=== PATIENT | female | born 1950 | race Caucasian/White ===

== ENCOUNTER 2021-06-01 10:05 | Inpatient (IN) ==
[2021-06-01] MEDS ORDERED: ACETAMINOPHEN 500 MG TABLET ONE (11:05)
[2021-06-01 11:06] LABS: Basophils % 0.2 % (0.0-0.8); Eosinophils % 0.2 % (0.00-10.9); Hematocrit 31.8 VOL% (35.7-47.0); Hemoglobin 10.2 GM/DL (12.0-16.0); Immature Granulocytes % 0.8 %; Immature Granulocytes Absolute 0.11 #; Lymphocytes # 1.4 10*3/uL (1.4-4.0); Lymphocytes % 10.4 % (21.3-54.2); Mean Corpuscular HGB Conc 32.1 GM/DL (32-36); Mean Corpuscular Volume 83.2 FL (87-102); Mean Platelet Volume 9.3 FL (9.6-12.0); Monocytes % 7.8 % (1.7-12.7); Neutrophils % 80.6 % (38.7-73.9); Platelet Count 572 T/CUMM (130-400); Red Blood Count 3.82 MC/CUMM (3.8-5.5); Red Cell Distribution Width 22.5 % (9.3-17.3); White Blood Count 13.1 T/CUMM (4-12)
[2021-06-01] MEDS ORDERED: ACETAMINOPHEN 500 MG TABLET PO STA (11:13)
[2021-06-01] MEDS ORDERED: AZITHROMYCIN 250 MG TABLET PO STA (11:16)
[2021-06-01] MEDS ORDERED: cefTRIAXone 1,000 MG in SODIUM CHLORIDE 0.9% 100 ML IV STA (11:16)
[2021-06-01 11:23] LABS: Blood Urea Nitrogen 13 MG/DL (7-18); Calcium 6.3 MG/DL (8.5-10.1); Carbon Dioxide 23 MMOL/L (21-32); Estimated Glom Filtration Rate 57 ML/MIN; Glucose 105 MG/DL (74-106); Hypochromasia Slight; Microcytosis Slight; Osmolality,Calculated 261.7 MOS/KG (273-304); Platelet Estimate Increased; Potassium 2.6 MMOL/L (3.5-5.1); Sodium 131 MMOL/L (136-145)
[2021-06-01 11:36] LABS: Barbiturates Screen,Urine Negative (Negative); Benzodiazepines Screen,Urine Positive (Negative); Cannabinoid Screen,Urine Negative (Negative); Opiate Screen,Urine Positive (Negative); Phencyclidine Screen,Urine Negative (Negative)
[2021-06-01] MEDS ORDERED: POTASSIUM CHLORIDE 20 MEQ TABLET PO STA (11:48)
[2021-06-01] MEDS ORDERED: CALCIUM GLUCONATE 1,000 MG in SODIUM CHLORIDE 0.9% 100 ML IV ONE (12:02)
[2021-06-01] MEDS ORDERED: ONDANSETRON 4 MG/2 ML VIAL IV PRN (12:19)
[2021-06-01] MEDS ORDERED: DOCUSATE SODIUM 100 MG CAPSULE PO PRN (12:19)
[2021-06-01] MEDS ORDERED: DEXTROSE 50% 25 GM/50 ML VIAL IV PRN (12:19)
[2021-06-01] MEDS ORDERED: SIMETHICONE CHEW 125 MG TABLET PO PRN (12:19)
[2021-06-01] MEDS ORDERED: ALUMINUM/MAGNES/SIMETH MAX STR 30 ML UDCUP PO PRN (12:19)
[2021-06-01] MEDS ORDERED: GLUCAGON 1 MG VIAL IM PRN (12:19)
[2021-06-01] MEDS ORDERED: ALBUTEROL 2.5 MG/3 ML NEB RESP TX PRN (12:19)
[2021-06-01] MEDS ORDERED: POTASSIUM CHLORIDE RIDER 10 MEQ/100 ML PREMIX IV PRN (12:33)
[2021-06-01] MEDS ORDERED: MAGNESIUM SULF RIDER 2 GM/50 ML PREMIX IV PRN (12:33)
[2021-06-01] MEDS ORDERED: POTASSIUM CHLORIDE 20 MEQ TABLET PO PRN (12:33)
[2021-06-01] MEDS ORDERED: MAGNESIUM SULF RIDER 4 GM/100 ML PREMIX IV PRN (12:33)
[2021-06-01] MEDS: LORazepam 2 MG/1 ML VIAL IV PRN ×2 (12:55→20:42)
[2021-06-01] MEDS ORDERED: hydrALAZINE 20 MG/1 ML VIAL IV PRN (13:05)
[2021-06-01] MEDS: ENOXAPARIN 40 MG/0.4 ML SYRINGE SUBCUT SCH (13:05)
[2021-06-01] MEDS: MAGNESIUM SULF RIDER 4 GM/100 ML PREMIX IV ONE ×2 (14:18→14:33)
[2021-06-01] MEDS: SODIUM CHLOR 0.9% KCL 40 MEQ 40 MEQ/1,000 ML BAG IV SCH (15:59)
[2021-06-01 18:34] LABS: Bilirubin,Urine Negative (Negative); Blood, Urine Negative (Negative); Glucose,Urine (UA) Negative (Negative); Ketones,Urine Negative (Negative); Nitrite,Urine Negative (Negative); Protein,Urine Negative; RBC,Urine 3 /HPF (0-4); Squamous Epithelial Cell,Urine Occasional /HPF (0-10); Urine Appearance CLEAR (Clear); Urine Color Straw (Yellow); Urine Specific Gravity 1.003 (1.001-1.035); Urine Urobilinogen < 2.0 EU/DL (0.2-1.0)
[2021-06-02 04:39] LABS: Basophils % 0.5 % (0.0-0.8); Eosinophils # 0.1 10*3/uL (0.0-0.87); Hematocrit 26.7 VOL% (35.7-47.0); Hemoglobin 8.6 GM/DL (12.0-16.0); Immature Granulocytes % 0.5 %; Immature Granulocytes Absolute 0.04 #; Lymphocytes % 25.8 % (21.3-54.2); Mean Corpuscular HGB Conc 32.2 GM/DL (32-36); Mean Corpuscular Volume 83.4 FL (87-102); Monocytes % 12.4 % (1.7-12.7); Neutrophils % 59.8 % (38.7-73.9); Platelet Count 498 T/CUMM (130-400); Red Cell Distribution Width 22.5 % (9.3-17.3); White Blood Count 7.9 T/CUMM (4-12)
[2021-06-02 05:15] LABS: Calcium 6.1 MG/DL (8.5-10.1); Osmolality,Calculated 274.5 MOS/KG (273-304); Potassium 3.5 MMOL/L (3.5-5.1); Risk Ratio 2.48; VLDL Cholesterol 26.8 MG/DL
[2021-06-02] MEDS: SODIUM CHLOR 0.9% KCL 40 MEQ 40 MEQ/1,000 ML BAG IV SCH (06:05)
[2021-06-02] MEDS ORDERED: CALCIUM GLUCONATE 1,000 MG in SODIUM CHLORIDE 0.9% 100 ML IV ONE (07:22)
[2021-06-02 08:48] LABS: Free T4 (Free Thyroxine) 0.92 NG/DL (0.76-1.46)
[2021-06-02] MEDS: SODIUM CHLORIDE 0.9% 1,000 ML IV SCH (10:17)
[2021-06-02] MEDS: AZITHROMYCIN 250 MG TABLET PO SCH (10:18)
[2021-06-02] MEDS: PANTOPRAZOLE 40 MG TABLET PO SCH (10:18)
[2021-06-02] MEDS: amLODIPine 2.5 MG TABLET PO SCH (10:20)
[2021-06-02] MEDS: cefTRIAXone 1,000 MG in SODIUM CHLORIDE 0.9% 100 ML IV SCH (10:21)
[2021-06-02] MEDS: ENOXAPARIN 40 MG/0.4 ML SYRINGE SUBCUT SCH (11:55)
[2021-06-03] MEDS: SODIUM CHLORIDE 0.9% 1,000 ML IV SCH ×2 (00:03→14:37)
[2021-06-03] MEDS: levETIRAcetam 500 MG TABLET PO SCH ×3 (00:19→22:10)
[2021-06-03 04:46] LABS: Basophils % 0.6 % (0.0-0.8); Eosinophils # 0.1 10*3/uL (0.0-0.87); Hemoglobin 8.3 GM/DL (12.0-16.0); Immature Granulocytes % 0.8 %; Immature Granulocytes Absolute 0.06 #; Lymphocytes # 2.1 10*3/uL (1.4-4.0); Lymphocytes % 29.6 % (21.3-54.2); Mean Corpuscular HGB Conc 31.9 GM/DL (32-36); Mean Corpuscular Volume 85.2 FL (87-102); Mean Platelet Volume 9.7 FL (9.6-12.0); Monocytes % 11.8 % (1.7-12.7); Neutrophils % 56.2 % (38.7-73.9); Platelet Count 458 T/CUMM (130-400); Red Blood Count 3.05 MC/CUMM (3.8-5.5); Red Cell Distribution Width 23.7 % (9.3-17.3); White Blood Count 7.1 T/CUMM (4-12)
[2021-06-03 05:11] LABS: Calcium 5.9 MG/DL (8.5-10.1); Osmolality,Calculated 270.8 MOS/KG (273-304); Potassium 2.9 MMOL/L (3.5-5.1)
[2021-06-03 05:22] LABS: Hypochromasia 1+; Microcytosis 1+; Platelet Estimate Adequate
[2021-06-03] MEDS: LEVOTHYROXINE 50 MCG TABLET PO SCH (06:22)
[2021-06-03] MEDS ORDERED: POTASSIUM CHLORIDE 20 MEQ TABLET PO SCH (07:30)
[2021-06-03] MEDS ORDERED: CALCIUM GLUCONATE 1,000 MG in SODIUM CHLORIDE 0.9% 100 ML IV ONE (08:00)
[2021-06-03] MEDS: AZITHROMYCIN 250 MG TABLET PO SCH (08:13)
[2021-06-03] MEDS: PANTOPRAZOLE 40 MG TABLET PO SCH (08:13)
[2021-06-03] MEDS: amLODIPine 2.5 MG TABLET PO SCH (08:13)
[2021-06-03] MEDS: DOCUSATE SODIUM 100 MG CAPSULE PO SCH ×2 (08:13→22:14)
[2021-06-03 08:15] LABS: Alanine Aminotransferase 9 U/L (13-56); Albumin 2.6 G/DL (3.4-5.0); Alkaline Phosphatase 66 U/L (45-117); Aspartate Amino Transferase 12 U/L (0-37); Bilirubin,Total < 0.39 MG/DL (0.20-1.00); Blood Urea Nitrogen 7 MG/DL (7-18); Calcium 6.1 MG/DL (8.5-10.1); Carbon Dioxide 23 MMOL/L (21-32); Estimated Glom Filtration Rate 94 ML/MIN; Glucose 93 MG/DL (74-106); Osmolality,Calculated 272.7 MOS/KG (273-304); Potassium 3.1 MMOL/L (3.5-5.1); Sodium 138 MMOL/L (136-145); Total Protein 5.9 G/DL (6.4-8.2)
[2021-06-03] MEDS ORDERED: CALCIUM GLUCONATE 2,000 MG in SODIUM CHLORIDE 0.9% 100 ML IV ONE (08:30)
[2021-06-03] MEDS ORDERED: POTASSIUM PHOS/SOD PHOS 250 MG TABLET PO SCH (08:31)
[2021-06-03] MEDS ORDERED: POTASSIUM CHLORIDE 20 MEQ TABLET PO ONE (09:28)
[2021-06-03] MEDS ORDERED: MAGNESIUM SULF RIDER 4 GM/100 ML PREMIX IV ONE (09:30)
[2021-06-03] MEDS: cefTRIAXone 1,000 MG in SODIUM CHLORIDE 0.9% 100 ML IV SCH (10:52)
[2021-06-03] MEDS ORDERED: POTASSIUM PHOSPHATE 30 MMOL in SODIUM CHLORIDE 0.9% 250 ML IV ONE (11:25)
[2021-06-03] MEDS: ENOXAPARIN 40 MG/0.4 ML SYRINGE SUBCUT SCH (12:20)
[2021-06-03] MEDS: ACETAMINOPHEN 325 MG TABLET PO PRN (13:37)
[2021-06-03 14:10] LABS: Alanine Aminotransferase 10 U/L (13-56); Albumin 2.8 G/DL (3.4-5.0); Alkaline Phosphatase 67 U/L (45-117); Aspartate Amino Transferase 12 U/L (0-37); Bilirubin,Total < 0.39 MG/DL (0.20-1.00); Blood Urea Nitrogen 6 MG/DL (7-18); Calcium 6.9 MG/DL (8.5-10.1); Carbon Dioxide 22 MMOL/L (21-32); Estimated Glom Filtration Rate 90 ML/MIN; Glucose 104 MG/DL (74-106); Osmolality,Calculated 270.8 MOS/KG (273-304); Potassium 4.1 MMOL/L (3.5-5.1); Sodium 137 MMOL/L (136-145); Total Protein 6.3 G/DL (6.4-8.2)
[2021-06-03] MEDS ORDERED: CALCIUM (CARBONATE)/VITAMIN D 600 MG-400 UNIT TABLET PO SCH (21:00)
[2021-06-04] MEDS: ACETAMINOPHEN 325 MG TABLET PO PRN (00:29)
[2021-06-04 05:57] LABS: Basophils % 0.4 % (0.0-0.8); Eosinophils # 0.1 10*3/uL (0.0-0.87); Eosinophils % 1.1 % (0.00-10.9); Hematocrit 27.7 VOL% (35.7-47.0); Hemoglobin 8.8 GM/DL (12.0-16.0); Immature Granulocytes % 0.9 %; Immature Granulocytes Absolute 0.07 #; Lymphocytes # 1.9 10*3/uL (1.4-4.0); Lymphocytes % 25.3 % (21.3-54.2); Mean Corpuscular HGB Conc 31.8 GM/DL (32-36); Mean Corpuscular Volume 85.5 FL (87-102); Mean Platelet Volume 9.9 FL (9.6-12.0); Monocytes % 11.8 % (1.7-12.7); Neutrophils % 60.5 % (38.7-73.9); Platelet Count 444 T/CUMM (130-400); Red Blood Count 3.24 MC/CUMM (3.8-5.5); Red Cell Distribution Width 23.9 % (9.3-17.3); White Blood Count 7.4 T/CUMM (4-12)
[2021-06-04] MEDS: LEVOTHYROXINE 50 MCG TABLET PO SCH (06:26)
[2021-06-04 06:28] LABS: Calcium 6.6 MG/DL (8.5-10.1); Osmolality,Calculated 266.1 MOS/KG (273-304); Potassium 3.5 MMOL/L (3.5-5.1)
[2021-06-04 08:19] VITALS: BP 142/94
[2021-06-04 09:29] LABS: Hypochromasia 1+; Ovalocytes Few; Platelet Estimate Normal
== END 2021-06-04 08:40 | DRG 100 ==
LOC: N.ED 10:05 → N.EDINP 10:05 → N.TELES 13:50
PROVIDERS: ADMIT Internal Medicine; ATTEND Internal Medicine